=== PATIENT | female | born 1980 | race Caucasian/White ===

== ENCOUNTER → 2018-01-04 | Outpatient (CLI) | payer BC, OTHER ==
--- NOTE | 2018-01-05 08:52 | RAD ---
DATE: 01/04/2018 EXAM: MAMMO ESTER SCREENING BILATERAL HISTORY: Routine screening COMPARISON: Baseline study This study was interpreted with the benefit of Computerized Aided Detection (CAD). Breast Density: HETERO The breast parenchyma is heterogenously dense, which could reduce sensitivity of mammography. Breast parenchyma level C. FINDINGS: 2-D and 3-D tomosynthesis imaging was performed in CC and MLO projections. The fibroglandular tissues are heterogeneous. No spiculated mass or architectural distortion is evident. There are a few scattered microcalcifications in both breasts. The distribution suggests a benign etiology. IMPRESSION: There is no mammographic evidence of malignancy in either breast. BI-RADS CATEGORY: 2 BENIGN FINDING(S) RECOMMENDED FOLLOW-UP: 12M 12 MONTH FOLLOW-UP PQRS compliance statement: Patient information was entered into a reminder system with a target due date for the next mammogram. Mammography is a sensitive method for finding small breast cancers, but it does not detect them all and is not a substitute for careful clinical examination. A negative mammogram does not negate a clinically suspicious finding and should not result in delay in biopsying a clinically suspicious abnormality. "Our facility is accredited by the [employer] Mammography Program."
== END | disposition home or self-care (01) ==
LOC: MAMMO 14:48
PROVIDERS: ATTEND Neuromusculoskeletal Medicine & OMM
DX: Z12.31 Encounter for screening mammogram for malignant neoplasm of breast (principal)
CPT/HCPCS: 77063; 77067

== ENCOUNTER → 2018-07-11 | Outpatient (CLI) | payer BC ==
--- NOTE | 2018-07-12 08:23 | RAD ---
AP and Lateral Views of the Chest 07/11/2018 5:22 PM Indication: CHEST PRESSURE WITH TACHYCARDIA Comparison: None Findings: There is no focal consolidation or infiltrate identified. The cardiomediastinal silhouette is within normal limits. There is no evidence of pneumothorax or pleural effusion. No acute osseous abnormalities are identified. Impression: No evidence of acute cardiopulmonary process. Electronically signed by: Sampson Ordonez MD (07/12/2018 8:20 AM) [id number]
== END | disposition home or self-care (01) ==
LOC: PMG 17:07
PROVIDERS: ATTEND Registered Nurse
DX: R07.89 Other chest pain (principal); R00.0 Tachycardia, unspecified
CPT/HCPCS: 71046

== ENCOUNTER → 2018-07-24 | Outpatient (CLI) | payer BC ==
--- NOTE | 2018-07-24 17:22 | CARD ---
MR#: [id number] Date of Study: 07/24/2018 Ordering Physician: BRITTANY MADISON, Referring Physician: BRITTANY MADISON, Tech: Asia Tran APPROVED REPORT EXAM: Two-dimensional and M-mode echocardiogram with Doppler and color Doppler. Other Information Quality : GoodHR: 69bpm Rhythm : NSR INDICATION Chest Pain Chest pressure RISK FACTORS Smoking 2D DIMENSIONS RVDd2.6 (2.9-3.5cm)Left Atrium(2D)2.8 (1.6-4.0cm) IVSd0.8 (0.7-1.1cm)Aortic Root(2D)3.1 (2.0-3.7cm) LVDd4.5 (3.9-5.9cm)LVOT Diameter2.0 (1.8-2.4cm) PWd0.9 (0.7-1.1cm)LVDs3.2 (2.5-4.0cm) FS (%) 28.8 %SV50.1 ml Aortic Valve AoV Peak Ethan.107.6cm/sAoV VTI21.8cm AO Peak GR.4.6mmHgLVOT Peak Ethan.93.9cm/s LVOT VTI 20.14cmAO Mean GR.3mmHg HUGO (VMAX)2.72ku5ERI (VTI)2.98cm2 Mitral Valve MV E Peoyjbyi99.6cm/sMV DECEL HGDP994oa MV A Tbtqhcic43.2cm/sE/A Ratio1.3 Pulmonary Valve PV Peak Hvpjghfl04.0cm/sPV Peak Grad.2mmHg Tricuspid Valve TR P. Fwcdryqs633yo/sRAP DPMJMYLM0loKy TR Peak Gr.70oxTcYLSN97noFr Pulmonary Vein S1 Awvawnff15.0cm/sD2 Uvpdfete95.2cm/s LEFT VENTRICLE The left ventricle is normal size. There is normal left ventricular wall thickness. The left ventricu lar systolic function is normal and the ejection fraction is within normal range. The Ejection Fracti on is 50-55%. There is normal LV segmental wall motion. The left ventricular diastolic function and f illing is normal for age. RIGHT VENTRICLE The right ventricle is normal size. There is normal right ventricular wall thickness. The right ventr icular systolic function is normal. ATRIA The left atrium size is normal. The right atrium size is normal. The interatrial septum is intact wit h no evidence for an atrial septal defect or patent foramen ovale as noted on 2-D or Doppler imaging. AORTIC VALVE The aortic valve is normal in structure and function. Doppler and Color Flow revealed no significant aortic regurgitation. There is no significant aortic valvular stenosis. MITRAL VALVE The mitral valve is normal in structure and function. There is no evidence of mitral valve prolapse. There is no mitral valve stenosis. Doppler and Color Flow revealed no mitral valve regurgitation note d. TRICUSPID VALVE The tricuspid valve is normal in structure and function. Doppler and Color Flow revealed trace tricus pid regurgitation. There is no tricuspid valve stenosis. PULMONIC VALVE The pulmonic valve is not well visualized. Doppler and Color Flow revealed no pulmonic valvular regur gitation. GREAT VESSELS The aortic root is normal in size. The IVC is normal in size and collapses >50% with inspiration. PERICARDIAL EFFUSION There is no evidence of significant pericardial effusion. Critical Notification Critical Value: No <Conclusion> The left ventricle is normal size. The left ventricular systolic function is normal and the ejection fraction is within normal range. The Ejection Fraction is 50-55%. There is no significant aortic valvular stenosis. Doppler and Color Flow revealed no significant aortic regurgitation. Doppler and Color Flow revealed no mitral valve regurgitation noted. Doppler and Color Flow revealed trace tricuspid regurgitation. Signed by : Bam Mckinnon MD Electronically Approved : 07/24/2018 17:21:18
== END | disposition home or self-care (01) ==
LOC: ECHO 15:05
PROVIDERS: ATTEND Registered Nurse
DX: R07.89 Other chest pain (principal); F17.200 Nicotine dependence, unspecified, uncomplicated
CPT/HCPCS: 93306

== ENCOUNTER → 2018-07-24 | Outpatient (CLI) | payer BC ==
--- NOTE | 2018-07-24 14:40 | RAD ---
Examination: VENOUS LOWER EXT BILATERAL HISTORY: Pain, cold feet, COMPARISON/CORRELATION: None FINDINGS: Bilateral lower extremity duplex venous ultrasound exam was performed. Grayscale, color Doppler, and spectral Doppler imaging was performed. Compression and augmentation was performed. The right common femoral vein, superficial femoral vein, popliteal vein, visualized calf veins and greater saphenous vein are normal with no evidence of deep venous thrombus. Normal compressibility and augmentation is evident. The left common femoral vein, superficial femoral vein, popliteal vein, visualized calf veins and greater saphenous vein are normal with no evidence of deep venous thrombus. Normal compressibility and augmentation is evident. IMPRESSION: Normal bilateral lower extremity duplex ultrasound exam. No evidence of deep venous thrombus involving the lower extremities. Electronically signed by: Arnaud Mosquera MD (07/24/2018 2:37 PM) [facility]
--- NOTE | 2018-07-24 17:47 | RAD ---
Bilateral lower extremity venous reflux ultrasound. History: COLD FEET, LEG PAIN, HEAVY LEGS Comparison: None. Procedure: Color flow Doppler, spectral Doppler analysis, and 2D images are obtained with and without patient performing Valsalva maneuver of the superficial veins of both lower extremities. Findings: Right anterior accessory saphenous vein is noted. The proximal greater saphenous vein diameter is 4 mm, there is no reflux. Right lesser saphenous vein diameter is 4 mm, no reflux is seen. The left great saphenous vein diameter is 4 mm, no reflux is seen. The left lesser saphenous vein diameter is 3 mm, no reflux is seen. IMPRESSION: No venous reflux is identified. Electronically signed by: Al Pelaez MD (07/24/2018 5:44 PM) [id number]
--- NOTE | 2018-07-25 11:03 | RAD ---
BILATERAL LOWER EXTREMITY DUPLEX ARTERY ULTRASOUND Indication: COLD FEET, LEG PAIN, HEAVY LEGS Comparison: None. Procedure: Real-time grayscale, color flow Doppler, and Doppler spectral waveform analysis of the arterial system of the lower extremity is performed. Findings: Normal triphasic waveforms are present in the common femoral artery, superficial femoral artery, popliteal artery, anterior tibial artery, posterior tibial artery, peroneal artery, and dorsalis pedis artery. There is no focal elevated peak systolic velocity to suggest a significant stenosis. No atherosclerotic plaque is identified. IMPRESSION: Normal arterial duplex Doppler ultrasound. Electronically signed by: Al Pelaez MD (07/25/2018 11:00 AM) [id number]
== END | disposition home or self-care (01) ==
LOC: US 11:23
PROVIDERS: ATTEND Registered Nurse
DX: R20.8 Other disturbances of skin sensation (principal); M79.604 Pain in right leg; M79.605 Pain in left leg
CPT/HCPCS: 93925; 93970

== ENCOUNTER → 2020-10-16 | Outpatient (CLI) | payer BC ==
--- NOTE | 2020-10-16 15:34 | RAD ---
EXAMINATION: MG DIGITAL BILAT DIAGNOSTIC MAMMO WITH ESTER CLINICAL HISTORY: Lateral breast pain bilaterally TECHNIQUE: Digital craniocaudal and mediolateral oblique views of the bilateral breasts obtained with 3-D tomosynthesis. COMPARISON: 01/04/2018 BREAST COMPOSITION: The breasts are heterogeneously dense, which may obscure small masses. FINDINGS: No evidence of suspicious mass, calcifications, or areas of architectural distortion. IMPRESSION: No mammographic evidence of malignancy, recommend clinical management of breast pain. BI-RADS ASSESSMENT: Category 1: Negative RECOMMENDATION: Recommend clinical management of breast pain and routine bilateral screening mammogram in one year. PQRS compliance statement - Patient information was entered into a reminder system with a target due date for the next mammogram. "Our facility is accredited by the [employer] Mammography Program." Electronically signed by: Hira Carmona DO (10/16/2020 3:32 PM) [id number]
== END ==
LOC: MAMMO 13:46
PROVIDERS: ATTEND Physician Assistant Medical
DX: N64.4 Mastodynia (principal)
CPT/HCPCS: 77066; G0279; 77062